=== PATIENT | male | born 1980 | race Caucasian/White ===

== ENCOUNTER → 2020-12-02 | Outpatient (CLI) | payer BC ==
--- NOTE | 2020-12-02 12:45 | KCIC ---
EXAM: CT ABDOMEN/PELVIS WITHOUT CONTRAST. HISTORY: Left flank pain, hematuria. TECHNIQUE: Computed tomography of the abdomen and pelvis was performed without intravenous contrast. One or more of the following individualized dose reduction techniques were utilized for this examinat ion: 1. Automated exposure control. 2. Adjustment of the mA and/or kV according to patient size. 3. Use of iterative reconstruction technique. COMPARISON: None. FINDINGS: Lung windows through the visualized portions of the bases reveal no abnormality. Bone windo ws reveal no suspicious lesions. A calculus at the left ureteropelvic junction measures 11 x 8 mm. There is mild left hydronephrosis. Additional calculi in the left lower pole measure up to 6 mm. There are no right renal or ureteral ca lculi. There are no suspicious renal lesions without contrast. The liver, pancreas, adrenal glands, spleen and gallbladder are unremarkable. There are no pathologic ally enlarged lymph nodes. The appendix is not inflamed. There is no small bowel obstruction. There is mild bladder wall thicken ing. IMPRESSION: 1. 11 x 8 mm left ureteropelvic junction calculus with mild left hydronephrosis. 2. Additional left renal calculi measure up to 6 mm. 3. Mild bladder wall thickening. Correlate with urinalysis. Electronically signed by: Anastasia Ordoñez MD (12/02/2020 12:43 PM) [facility]
== END ==
LOC: KCIC CT 09:10
PROVIDERS: ATTEND Family Medicine
DX: N20.0 Calculus of kidney (principal); N13.39 Other hydronephrosis; R31.9 Hematuria, unspecified
CPT/HCPCS: 74176

== ENCOUNTER → 2020-12-11 | Outpatient (CLI) | payer BC ==
--- NOTE | 2020-12-11 14:15 | KCIC ---
XR ABDOMEN 1V History: Reason: LEFT FLANK/ABD PAIN, GROSS HEMATURIA, XS 2 MONTHS / Spl. Instructions: / History: Technique: Supine view the abdomen. Comparison: CT December 02, 2020 Findings: 1.2 cm calculus within the region of the left renal pelvis, similar compared to prior CT. Additional left intrarenal calculi. Calculus within the region of the left proximal ureter measures 0.3 cm, new compared to prior. Minimal small bowel gas. Air and stool throughout the colon. Impression: 1. Small calculus within the region of the left proximal ureter. CT can further evaluate for obstruc ting ureteral calculus. 2. Unchanged left renal pelvic and intrarenal calculi. Electronically signed by: Onel Herzog DO (12/11/2020 2:13 PM) [id number]
== END ==
LOC: KCIC 10:15
PROVIDERS: ATTEND Urology
DX: N20.0 Calculus of kidney (principal)
CPT/HCPCS: 74018

== ENCOUNTER → 2021-02-04 | Outpatient (CLI) | payer BC ==
--- NOTE | 2021-02-04 17:12 | KCIC ---
XR ABDOMEN 1V History: Reason: URETERAL CALCULUS / Spl. Instructions: Lt sided stone w/2 recent lithotripsy procedu res. Pt states do xray today. / History: Technique: Supine views the abdomen. Comparison: December 11, 2020 Findings: Left nephrolithiasis, unchanged. Previously identified calculus within the region of the left proxima l ureter and renal pelvis are no longer identified. Minimal small bowel gas. Air and stool throughout the colon. Impression: 1. Previously identified calcifications projecting over the left renal pelvis and proximal ureter ar e no longer identified. 2. Unchanged left inferior intrarenal calculus. Electronically signed by: Onel Herzog DO (02/04/2021 5:09 PM) [id number]
== END ==
LOC: KCIC 11:42
PROVIDERS: ATTEND Urology
DX: N20.2 Calculus of kidney with calculus of ureter (principal)
CPT/HCPCS: 74018